=== PATIENT | female | born 1995 | race African-American/Black ===

== ENCOUNTER 2017-02-07 17:32 | Emergency (ER) | payer OTHER, MEDICAID ==
[~2017-02-07] VITALS: Ht 170.2 cm; Wt 60.0 kg
[~2017-02-07 17:32] MED LIST: NAPR500 PO
[2017-02-07] MEDS ORDERED: ACETAMINOPHEN/HYDROcodone 325 MG/5 MG TAB PO ONE (19:00)
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
[2017-02-07 19:24] VITALS: BP 150/84; PULSE 81; RESP 18; TEMP 99.3; O2SAT 99
[2017-02-07] MEDS ORDERED: DEPO150I IM (19:33)
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
[2017-02-07] MEDS ORDERED: IBUP800T23 PO (20:26)
[2017-02-07] MEDS ORDERED: BACL10TA PO (20:26)
== END 2017-02-07 20:34 | disposition home or self-care (01) ==
LOC: NEDAMB 17:32 → NEPD 20:34
DX: S16.1XXA Strain of muscle, fascia and tendon at neck level, initial encounter (principal); S46.911A Strain of unspecified muscle, fascia and tendon at shoulder and upper arm level, right arm, initial encounter; M62.830 Muscle spasm of back; V43.62XA Car passenger injured in collision with other type car in traffic accident, initial encounter; Y92.414 Local residential or business street as the place of occurrence of the external cause
CPT/HCPCS: 71010; 72125; 73030; 99284

== ENCOUNTER 2017-08-29 03:50 | Emergency (ER) | payer MEDICAID ==
[~2017-08-29] VITALS: Ht 160 cm; Wt 85.0 kg
[~2017-08-29 03:50] MED LIST changes: +BACL10TA PO; +DEPO150I IM; +IBUP1TAB7 PO; -NAPR500 PO
[2017-08-29 04:02] VITALS: BP 148/82; PULSE 92; RESP 16; TEMP 99.2; O2SAT 99
[2017-08-29] MEDS ORDERED: CEPH-460 PO (05:15)
[2017-08-29] MEDS ORDERED: TYLE325T PO (05:15)
--- NOTE | 2017-08-29 05:16 | PD ---
HPI Chief Complaint: Eye Problems/Injury Time Seen by Provider: 04:25 Travel History International Travel<30 days: No Contact w/Intl Traveler<30days: No Traveled to known affect area: No History of Present Illness HPI 22yo F with no significant PMH presents to the ED with c/o right eyelid pain for a few days. Said she did have some crusting of eyelashes when she woke up. +Watery eyes. Denies any fever, change in vision, trauma to eye, chest pain, sob, n/v, abdominal pain, focal weakness or numbness. PFSH Past Medical History Medical History: Denies Significant Hx Autoimmune Disease: No Anxiety: No Depression: No Cardiovascular Problems: No Developmental Delay: No Diminished Hearing: No Gastrointestinal Disorders: No Genitourinary: No Headaches: Yes Psychiatric: No Respiratory: No Immunizations Current: Yes Sickle Cell Disease: No ?: Unknown : 2 Para: 1 Past Surgical History Surgical History: No Previous Surgery Other Surgery: No Social History Alcohol Use: No Tobacco Use: No Substance Use: No Allergies-Medications (Allergen,Severity, Reaction): Coded Allergies: No Known Allergies (Verified Adverse Reaction, Unknown, 08/29/17) Reported Meds & Prescriptions Reported Meds & Active Scripts Active Review of Systems Except as stated in HPI: all other systems reviewed are Neg Physical Exam Narrative GENERAL: 22yo F not in distress. SKIN: Focused skin assessment warm/dry. HEAD: Atraumatic. Normocephalic. EYES: Pupils equal and round at 4mm bilaterally. Right eyelid: +edema and erythema in right upper eyelid. EOMI. ENT: No nasal bleeding or discharge. Mucous membranes pink and moist. NECK: Trachea midline. No JVD. CARDIOVASCULAR: Regular rate and rhythm. No murmur appreciated. RESPIRATORY: No accessory muscle use. Clear to auscultation. Breath sounds equal bilaterally. GASTROINTESTINAL: Abdomen soft, non-tender, nondistended. MUSCULOSKELETAL: No obvious deformities. No clubbing. No cyanosis. No edema. NEUROLOGICAL: Awake and alert. No obvious cranial nerve deficits. Motor grossly within normal limits. Normal speech. PSYCHIATRIC: Appropriate mood and affect; insight and judgment normal. Data Data Last Documented VS Vital Signs Date Time Temp Pulse Resp B/P (MAP) Pulse Ox O2 Delivery O2 Flow Rate FiO2 08/29/17 04:02 99.2 92 16 148/82 (104) 99 MDM Medical Decision Making Medical Screen Exam Complete: Yes Emergency Medical Condition: Yes Differential Diagnosis Stye vs. early cellulitis vs. chalazion Narrative Course 22yo F with right upper eyelid pain and erythema for a few days. She is well appearing and has no other complaints. Do not actually see a pointed area of a stye. Could be early cellulitis so will cover with antibiotics. Return precautions given. Diagnosis Primary Impression: Swelling of right eyelid Referrals: Loly Parr MD as needed Departure Forms: Tests/Procedures Additional Instructions: Please follow up with your primary care physician or eye doctor in 2-3 days. Return to the ED if symptoms worsen. Med/Other Pt SpecificInfo: Prescription(s) given Scripts Cephalexin (Keflex) 500 Mg Cap 500 MG PO Q12H for Infection for 7 Days, #14 CAP 0 Refills Prov: Tana Maya DO 08/29/17 Acetaminophen (Tylenol) 325 Mg Tab 650 MG PO Q6H Y for PAIN SCALE 1 TO 4, #20 TAB 0 Refills Prov: Tana Maya DO 08/29/17 Disposition: 01 DISCHARGE HOME Condition: Stable Tana Maya DO Aug 29, 2017 05:16
== END 2017-08-29 05:43 | disposition home or self-care (01) ==
LOC: NEPC 03:50
DX: H02.841 Edema of right upper eyelid (principal)
CPT/HCPCS: 99283